=== PATIENT | female | born 1970 | race Caucasian/White ===

== ENCOUNTER → 2017-05-30 | Outpatient (CLI) | payer OTHER | LOC: M WHC 08:07 | DX: Z12.31 Encounter for screening mammogram for malignant neoplasm of breast (principal) | CPT/HCPCS: 77067 ==

== ENCOUNTER → 2018-10-01 | Outpatient (CLI) | payer OTHER ==
--- NOTE | 2018-10-01 13:54 | REPMRS ---
Patient History The patient states she had a clinical breast exam in 03/2018. Family history of pancreatic cancer at age 60 in maternal grandmother. Benign excisional biopsy of the right breast. Took hormonal contraceptives for 25 years. Digital Woman Screen Mammo: October 01, 2018 - Exam #: [id number] Bilateral CC and MLO view(s) were taken. Technologist: Carmen Nur, Technologist Prior study comparison: May 30, 2017, digital woman screen mammo performed at [facility]. April 25, 2015, bilateral digital mammo screening bilat, performed at [facility]. January 27, 2014, bilateral bilat screen digital mammo, performed at [facility] FINDINGS: The breast tissue is heterogeneously dense. This may lower the sensitivity of mammography. There are stable nodular opacities bilaterally suggestive of cysts. There are disbursed microcalcifications.There is a moderate amount of heterogeneously dense fibroglandular tissue which is fairly symmetric. There is no interval development of dominant mass, architectural distortion, or grouped microcalcification typical of malignancy. There has been no change in the appearance of the mammogram from the prior studies. 3-D tomosynthesis shows no additional findings. Assessment: BI-RADS/ACR category 2 mammogram. Benign Findings. Recommendation Routine screening mammogram of both breasts in 1 year (for women over age 40). This patient's Lifetime Breast Cancer RIsk is estimated at 12.2 %. This mammogram was interpreted with the aid of an FDA-approved computer-aided dectection system. Electronically Signed By: Librado Winters MD 10/01/18 [id number]
== END ==
LOC: M WHC 10:06
PROVIDERS: ATTEND Internal Medicine
DX: Z12.31 Encounter for screening mammogram for malignant neoplasm of breast (principal)

== ENCOUNTER → 2020-05-02 | Outpatient (REF) | payer OTHER ==
[2020-05-02 12:55] LABS: FOLLICLE STIMULATING HORMONE 99.8 mIU/mL; LUTEINIZING HORMONE 50.2 mIU/mL
== END ==
LOC: M LAB REF 11:27
PROVIDERS: ATTEND Internal Medicine
DX: N92.6 Irregular menstruation, unspecified (principal)

== ENCOUNTER → 2020-05-15 | Outpatient (CLI) | payer OTHER ==
--- NOTE | 2020-05-15 14:52 | REPMRS ---
Patient History The patient states she had a clinical breast exam in 2020. Family history of pancreatic cancer at age 60 in maternal grandmother. Benign excisional biopsy of the right breast. Took hormonal contraceptives for 25 years. Digital Woman Screen Mammo: May 15, 2020 - Exam #: [id number] Bilateral CC and MLO view(s) were taken. Technologist: Chantal Stahl, Technologist Prior study comparison: October 01, 2018, bilateral digital woman screen mammo performed at [facility]. May 30, 2017, digital woman screen mammo performed at [facility]. April 25, 2015, bilateral digital mammo screening bilat, performed at [facility]. FINDINGS: The breast tissue is heterogeneously dense. This may lower the sensitivity of mammography. The Volpara volumetric breast density category is: C. There is a moderate amount of heterogeneously dense fibroglandular tissue which is fairly symmetric. There is no interval development of dominant mass, architectural distortion, or grouped microcalcification typical of malignancy. There has been no change in the appearance of the mammogram from the prior studies. 3-D tomosynthesis shows no additional findings. Assessment: BI-RADS/ACR category 1 mammogram. Negative Mammogram. Recommendation Routine screening mammogram of both breasts in 1 year (for women over age 40). This patient's [facility] Lifetime Breast Cancer RIsk is estimated at 11.7 %. This mammogram was interpreted with the aid of an FDA-approved computer-aided dectection system. Electronically Signed By: Librado Winters MD 05/15/20 [id number]
== END ==
LOC: M WHC 11:49
PROVIDERS: ATTEND Internal Medicine
DX: Z12.31 Encounter for screening mammogram for malignant neoplasm of breast (principal); Z86.018 Personal history of other benign neoplasm; Z92.0 Personal history of contraception

== ENCOUNTER → 2020-06-14 | Outpatient (CLI) | payer OTHER ==
--- NOTE | 2020-06-14 10:04 | REP ---
INDICATION: BREAKING THROUGH BLEEDING. COMPARISON: 04/08/2018 TECHNIQUE: Transvesical and transvaginal FINDINGS: The uterus measures 6.8 x 3.2 x 4.4 cm. The parenchymal echo pattern is somewhat heterogenous. Note is again made of a sub cm sized fibroid with a new area of mixed echoes also noted measuring 1.4 x 1.2 x 1.4 cm. The endometrial echo complex measures 2 mm in its greatest thickness The right ovary measures 3 x 2 x 2.7 cm and is within normal limits with an RI of 0.47 Left ovary measures 2.2 x 1.6 x 2.3 cm and is within normal limits with an RI 0.59 Urinary bladder measures 10 x 8 x 11 cm. IMPRESSION: 1. Uterine myomatous changes as described above. <Electronically signed by Oral Ramirez > 06/14/20 1000
== END ==
LOC: M RAD 08:54
PROVIDERS: ATTEND Internal Medicine
DX: D25.9 Leiomyoma of uterus, unspecified (principal)

== ENCOUNTER → 2021-08-13 | Outpatient (CLI) | payer OTHER | LOC: M WHC 08:13 | PROVIDERS: ATTEND Internal Medicine | DX: R92.2 Inconclusive mammogram (principal); Z12.31 Encounter for screening mammogram for malignant neoplasm of breast ==

== ENCOUNTER → 2021-08-22 | Outpatient (CLI) | payer OTHER | LOC: M WHC 10:52 | PROVIDERS: ATTEND Internal Medicine | DX: R92.2 Inconclusive mammogram (principal) | CPT/HCPCS: 77066; G0279 ==

== ENCOUNTER → 2021-09-24 | Outpatient (CLI) | payer OTHER | LOC: M WHC 10:05 | PROVIDERS: ATTEND Internal Medicine | DX: R92.2 Inconclusive mammogram (principal) ==

== ENCOUNTER → 2022-06-20 | Outpatient (REF) | payer OTHER ==
[2022-06-20 13:24] LABS: FERRITIN 56.8 NG/ML (7.3-270.7)
[2022-06-20 16:49] LABS: C REACTIVE PROTEIN QUANTITATIV < 0.40 MG/DL (<1.0)
== END ==
LOC: M LAB REF 12:09
PROVIDERS: ATTEND Internal Medicine
DX: N95.9 Unspecified menopausal and perimenopausal disorder (principal); M79.10 Myalgia, unspecified site; L40.9 Psoriasis, unspecified

== ENCOUNTER → 2023-06-20 | Outpatient (CLI) | payer OTHER | LOC: M WHC 09:36 | PROVIDERS: ATTEND Internal Medicine | DX: Z12.31 Encounter for screening mammogram for malignant neoplasm of breast (principal) ==